=== PATIENT | female | born 1980 | race American Indian/Alaskan Native ===

== ENCOUNTER 2020-12-21 18:25 | Emergency (ER) | payer SELFPAY ==
[2020-12-21 19:07] VITALS: BP 147/96
[2020-12-21] MEDS ORDERED: TETRACAINE 0.5% OPHTH SOLN 4ML OU PRN (20:41)
[2020-12-21] MEDS ORDERED: ACETAMINOPHEN 500 MG TAB PO ONE (20:41)
[2020-12-21] MEDS ORDERED: FLUORESCEIN 1 MG STRIP OP ONE ×2 (20:41→22:49)
[2020-12-21] MEDS ORDERED: TETANUS,DIPH,PERTUSS(ACELL) VACCINE 0.5 ML SYRINGE IM ONE (23:08)
--- NOTE | 2020-12-21 23:10 | Emergency Department Report ---
ED Eye Problem HPI - General Chief complaint: Eye Problems Stated complaint: RT EYE PAIN Source: patient Mode of arrival: Wheelchair Limitations: No Limitations - History of Present Illness Initial comments: Patient is a 40-year-old -[place] female with a history of kidney stones, hypertension who presents to the ED with complaint of acute onset persistent severe right eye pain with a foreign body sensation for the last 24 hours. Patient states that she had been on vacation at a beach in [place] up to 24 hours ago and suspects that her fingers may have had some sand, and that she may have touched her right eye with her fingers containing particles of sand, and this may have entered into her right eye in the process. Patient states that she has been having foreign body sensation in the right eye with severe pain and photophobia since the incident occurred 24 hours ago. Patient denies headache, dizziness, syncope, chest pain, shortness of breath, traumatic injury, change in vision, nausea and vomiting, neck pain or fever and chills. MD chief complaint: eye pain (Right eye pain), eye redness, eye injury (Right eye injury), foreign body (Foreign body sensation in the right thigh) -: Sudden, hour(s) (24) Onset Description: sudden Location: right eye Place: street/outdoors If Injury: other (suspects sand may have entered right eye since she was at a beach) Eye Symptoms: redness, pain, foreign body sensation, photophobia Severity: severe Severity scale (0 -10): 7 If Pain, Quality: sharp, aching, throbbing Consistency: constant Context: injury (foreignn body sensation in right eye) Treatments Prior to Arrival: irrigated eye - Related Data Patient Tetanus UTD: Yes Home Medications Medication Instructions Recorded Confirmed Last Taken Aspirin [Aspirin TAB] 325 mg PO QDAY 11/18/15 11/23/15 11/18/15 Docusate Sodium [Colace] 100 mg PO Q48H 11/18/15 11/23/15 11/21/15 Ferrous Sulfate [Feosol] 325 mg PO QDAY 11/18/15 11/18/15 11/22/15 amLODIPine [Norvasc] 10 mg PO DAILY 11/18/15 11/23/15 11/23/15 07:30 Previous Rx's Medication Instructions Recorded Last Taken Type HYDROcodone/APAP 5-325 [[place] 1 each PO Q6HR PRN #10 tablet 11/25/15 Unknown Rx 5-325 mg TAB] HYDROcodone/APAP 5-325 [[place] 1 each PO Q6HR PRN #10 tablet 03/26/19 Unknown Rx 5/325] Acetaminophen/Codeine [Tylenol 1 - 2 tab PO Q6H PRN #12 tab 12/21/20 Unknown Rx /Codeine # 3 tab] Ciprofloxacin HCl [Ciloxan] 1 drop OP Q4H #5 ml 12/21/20 Unknown Rx Allergies Allergy/AdvReac Type Severity Reaction Status Date / Time ibuprofen [From Advil] Allergy Unknown Verified 12/21/20 19:05 labetalol AdvReac shaking Verified 11/18/15 07:58 ED Review of Systems ROS: Stated complaint: RT EYE PAIN Other details as noted in HPI Constitutional: denies: chills, fever Eyes: eye pain (Right eye pain with a foreign body sensation), eye discharge, other (Photophobia). denies: vision change ENT: denies: ear pain, throat pain Respiratory: denies: cough, shortness of breath, wheezing Cardiovascular: denies: chest pain, palpitations Endocrine: no symptoms reported Gastrointestinal: denies: abdominal pain, nausea, diarrhea Genitourinary: denies: urgency, dysuria, discharge Musculoskeletal: denies: back pain, joint swelling, arthralgia Skin: denies: rash, lesions Neurological: denies: headache, weakness, paresthesias Psychiatric: denies: anxiety, depression Hematological/Lymphatic: denies: easy bleeding, easy bruising ED Past Medical Hx - Past Medical History Previous Medical History?: Yes Hx Hypertension: Yes (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, s/p brain aneursym) Hx Renal Disease: No Hx Seizures: No Hx Kidney Stones: Yes Hx Asthma: No - Surgical History Additional Surgical History: X 3 - Social History Smoking Status: Never Smoker Substance Use Type: Alcohol - Medications Home Medications: Home Medications Medication Instructions Recorded Confirmed Last Taken Type Aspirin [Aspirin TAB] 325 mg PO QDAY 11/18/15 11/23/15 11/18/15 History Docusate Sodium [Colace] 100 mg PO Q48H 11/18/15 11/23/15 11/21/15 History Ferrous Sulfate [Feosol] 325 mg PO QDAY 11/18/15 11/18/15 11/22/15 History amLODIPine [Norvasc] 10 mg PO DAILY 11/18/15 11/23/15 11/23/15 07:30 History HYDROcodone/APAP 5-325 [[place] 1 each PO Q6HR PRN #10 tablet 11/25/15 Unknown Rx 5-325 mg TAB] HYDROcodone/APAP 5-325 [[place] 1 each PO Q6HR PRN #10 tablet 03/26/19 Unknown Rx 5/325] Acetaminophen/Codeine [Tylenol 1 - 2 tab PO Q6H PRN #12 tab 12/21/20 Unknown Rx /Codeine # 3 tab] Ciprofloxacin HCl [Ciloxan] 1 drop OP Q4H #5 ml 12/21/20 Unknown Rx ED Physical Exam - General Limitations: No Limitations General appearance: alert, in no apparent distress - Head Head exam: Present: atraumatic, normocephalic, normal inspection - Eye Eye exam: Present: normal appearance, PERRL, EOMI, other (Erythematous right conjunctiva with fluorescein dye absorption on the anterior right cornea on Pelayo lamp exam) Pupils: Present: normal accommodation - ENT ENT exam: Present: normal exam, normal orophraynx, mucous membranes moist, TM's normal bilaterally, normal external ear exam - Neck Neck exam: Present: normal inspection, full ROM - Respiratory Respiratory exam: Present: normal lung sounds bilaterally. Absent: respiratory distress, wheezes, rales, rhonchi, chest wall tenderness, accessory muscle use - Cardiovascular Cardiovascular Exam: Present: regular rate, normal rhythm, normal heart sounds. Absent: systolic murmur, diastolic murmur, rubs, gallop - GI/Abdominal GI/Abdominal exam: Present: soft, normal bowel sounds. Absent: tenderness, guarding, rebound, hyperactive bowel sounds, hypoactive bowel sounds, organomegaly - Extremities Exam Extremities exam: Present: normal inspection, full ROM, normal capillary refill - Back Exam Back exam: Present: normal inspection, full ROM. Absent: CVA tenderness (L), muscle spasm, paraspinal tenderness, vertebral tenderness - Neurological Exam Neurological exam: Present: alert, oriented X3, CN II-XII intact, normal gait, reflexes normal - Psychiatric Psychiatric exam: Present: normal affect, normal mood - Skin Skin exam: Present: warm, dry, intact, normal color. Absent: rash ED Course Vital Signs 12/21/20 19:05 Temperature 98.0 F Pulse Rate 72 Respiratory 18 Rate Blood Pressure 147/96 [Right] O2 Sat by Pulse 100 Oximetry ED Medical Decision Making - Medical Decision Making This is a 40-year-old -[place] female with a history of kidney stones, hypertension who presents to the ED with complaint of acute onset persistent severe right eye pain with a foreign body sensation for the last 24 hours. Patient states that she had been on vacation at a beach in [place] up to 24 hours ago and suspects that her fingers may have had some sand, and that she may have touched her right eye with her fingers containing particles of sand, and this may have entered into her right eye in the process. Patient states that she has been having foreign body sensation in the right eye with severe pain and photophobia since the incident occurred 24 hours ago. In the ED, patient is alert and oriented x3 and is not in any distress but appears significantly uncomfortable. Patient's visual acuity is unremarkable. Tetracaine solution eyedrops were added to the right eye for anesthesia and fluorescein dye applied. The right eye was then evaluated and examined with Pelayo lamp which revealed anterior right corneal abrasion. Patient was also treated for pain and also received booster tetanus vaccinations. Patient was discharged home on pain medications on reevaluation, patient's pain is well controlled medications and antibiotic eyedrops, and was advised to follow-up with her dispatcher automobile rental in 24 to 48 hours for reevaluation. Patient was then advised to return to the ED immediately if symptoms get worse. - Differential Diagnosis Corneal abrasion; eye injury; conjunctival abrasion; Critical care attestation.: If time is entered above; I have spent that time in minutes in the direct care of this critically ill patient, excluding procedure time. ED Disposition Clinical Impression: Right eye injury Qualifiers: Encounter type: initial encounter Qualified Code(s): S05.91XA - Unspecified injury of right eye and orbit, initial encounter Right cornea abrasion Qualifiers: Encounter type: initial encounter Qualified Code(s): S05.01XA - Injury of conjunctiva and corneal abrasion without foreign body, right eye, initial encounter Disposition: DC-01 TO HOME OR SELFCARE Is pt being admited?: No Does the pt Need Aspirin: No Condition: Stable Instructions: Corneal Abrasion, [id number] Additional Instructions: Take medication with food, drink plenty of fluids and follow-up with the dispatcher automobile rental Dr. Christopher in 24 to 48 hours for reevaluation. Return to the ED immediately if symptoms get worse. Prescriptions: Ciprofloxacin HCl [Ciloxan] 1 drop OP Q4H #5 ml Acetaminophen/Codeine [Tylenol /Codeine # 3 tab] 1 - 2 tab PO Q6H PRN #12 tab PRN Reason: Pain , Severe (7-10) Referrals: CUONG CHRISTOPHER MD [Staff Physician] - 2-3 Days Forms: Work/School Release Form(ED) Time of Disposition: 23:15 Print Language: ESTONIAN
== END 2020-12-21 23:43 | disposition home or self-care (01) ==
LOC: ED 18:25
DX: S05.01XA Injury of conjunctiva and corneal abrasion without foreign body, right eye, initial encounter (principal); I10 Essential (primary) hypertension; Z79.899 Other long term (current) drug therapy; Z79.82 Long term (current) use of aspirin; W45.8XXA Other foreign body or object entering through skin, initial encounter; Y93.89 Activity, other specified; Y92.89 Other specified places as the place of occurrence of the external cause; Y99.8 Other external cause status
CPT/HCPCS: 90471; 90715; 99283